=== PATIENT | male | born 1995 | race Caucasian/White ===

== ENCOUNTER 2018-07-08 16:42 | Observation (INO) | payer BC ==
--- NOTE | 2018-07-08 17:21 | EDPHY ---
H & P Stated Complaint: RLQ rebound tenderness began 1400, N/V. Denies trauma. Time Seen by Provider: 07/08/18 17:12 - Personal History Current Tetanus/Diphtheria Vaccine: Unsure - Medical/Surgical History Hx Asthma: No Hx Chronic Respiratory Disease: No Hx Diabetes: No Hx Cardiac Disease: No Hx Renal Disease: No Hx Cirrhosis: No Hx Alcoholism: No Hx HIV/AIDS: No Hx Splenectomy or Spleen Trauma: No Other PMH: Adenoid - Social History Smoking Status: Light smoker Constitutional: Initial Vital Signs Temperature (C) 36.6 C 07/08/18 17:06 Heart Rate 70 07/08/18 17:06 Respiratory Rate 16 07/08/18 17:06 Blood Pressure 129/80 H 07/08/18 17:06 O2 Sat (%) 96 07/08/18 17:06 O2 Delivery Mode Room Air Allergies/Adverse Reactions: amoxicillin Allergy (Verified 07/08/18 18:59) Anaphylaxis Cephalosporins Allergy (Verified 07/08/18 18:59) Anaphylaxis clarithromycin [From Biaxin] Allergy (Verified 07/08/18 18:59) Anaphylaxis clindamycin Allergy (Verified 07/08/18 18:59) Anaphylaxis Penicillins Allergy (Verified 07/08/18 18:59) Anaphylaxis Home Medications: Medication Instructions Recorded NK [No Known Home Meds] 07/08/18 Medical Decision Making - Diagnostics Imaging Results: Imaging Impressions Abdomen CT 07/08/18 17:23 Impression: 1. Mild to moderate thickening of the distal 2 cm of the appendix with associated appendicolith and mild amount of surrounding inflammation compatible with distal appendicitis Findings discussed with Dioni Robledo MD at 18:25 hour, 07/08/2018. Imaging: Discussed imaging studies w/ cafeteria assistant Radiologist, I viewed and interpreted images myself ED Course/Re-evaluation: CHIEF COMPLAINT: RLQ abdominal pain HISTORY OF PRESENT ILLNESS: The patient is a 23 y/o male complaining of RLQ abdominal pain that worsened around 13:30 today, about 4 hours ago. His stomach has been feeling "off" for a few days and he thought he had indigestion, but he didn't notice much pain until this afternoon. Palpation and movement aggravate pain. No recent illness or trauma. He denies history of abdominal surgeries and is typically healthy. Last PO intake around noon. REVIEW OF SYSTEMS: A comprehensive 10 system review of systems is otherwise negative aside from elements mentioned in the history of present illness and medical decision making. PHYSICAL EXAM: HR, BP, O2 Sat, RR. Temp noted General Appearance: Alert, well hydrated, appropriate, and non-toxic appearing. Head: Atraumatic without scalp tenderness or obvious injury Eyes: Pupils equal, round, reactive to light and accommodation, EOMI, no trauma , no injection. Ears: Clear bilaterally, no perforation, normal landmarks Nose: Atraumatic, no rhinorrhea, clear. Throat: There is no erythema or exudates, no lesions, normal tonsils, mucus membranes moist. Neck: Supple, non-tender, no lymphadenopathy. Respiratory: No retractions, no distress, no wheezes, and no accessory muscle use. Lungs are clear to auscultation bilaterally. Cardiovascular: Regular rate and rhythm, no murmurs, rubs, or gallops. Good capillary refill all extremities. Gastrointestinal: Abdomen is soft, RLQ tenderness, non-distended, no masses, no rebound, no guarding, no peritoneal signs. Musculoskeletal: Normal active ROM of all extremities, atraumatic. Neurological: Alert, appropriate, and interactive. Nonfocal. Skin: No rashes, good turgor, no nodules on palpation. PAST MEDICAL HISTORY: Denies PAST SURGICAL HISTORY: Denies SOCIAL HISTORY: Lives in [place]. Single. Not employed. DIAGNOSTICS/PROCEDURES/CRITICAL CARE TIME: Abdominal CT: acute appendicitis DIFFERENTIAL DIAGNOSIS: The differential diagnosis for the patient's abdominal pain included but was not limited to appendicitis, cholecystitis, hernias, testicular torsion, gastritis, and urinary tract infection. MEDICAL DECISION MAKING: This is a healthy 23 y/o male who presents with a few-day history of abdominal discomfort becoming acutely worse in the last 4 hours and now localized to his RLQ. He has RLQ tenderness on exam. Concern for appendicitis. Plan for IV, labs , abdominal CT. 1L IV NS and 4mg IV Zofran ordered. WBC elevated at 22.74. Abdomen CT shows acute appendicitis. Consulted with Dr. Stoll, surgery. He will admit patient and assess him in the ED. Reassessed patient and discussed findings. His pain is increasing and he feels anxious about the surgery. He has multiple antibiotic allergies including to amoxicillin, cephalosporins, penicillins, Biaxin, and clindamycin. He describes anaphylactic reactions including facial swelling to all of these compounds. He has taken doxycycline in the past without issue. ID paged. [id number]: Consulted with Dr. Greene, ID. He agrees with 1gm IV aztreonam and 500mg IV Flagyl treatment. - Data Points Laboratory Results: Laboratory Results 07/08/18 17:15 07/08/18 17:15 07/08/18 07/08/18 07/08/18 17:50 17:36 17:15 WBC RBC Hgb POC Hgb 16.0 gm/dL gm/dL (13.7-17.5) Hct POC Hct 47 % % (40-51) MCV MCH MCHC RDW Plt Count MPV Neut % (Auto) Lymph % (Auto) Door % (Auto) Eos % (Auto) Baso % (Auto) Nucleat RBC Rel Count Absolute Neuts (auto) Absolute Lymphs (auto) Absolute Monos (auto) Absolute Eos (auto) Absolute Basos (auto) Absolute Nucleated RBC Immature Gran % Immature Gran # RBC/WBC/PLT Morphology Platelet Estimate POC Sodium 140 mEq/L mEq/L (135-145) Sodium 136 mEq/L mEq/L (135-145) POC Potassium 3.6 mEq/L mEq/L (3.3-5.0) Potassium 3.7 mEq/L mEq/L (3.5-5.2) POC Chloride 100 mEq/L mEq/L (97-110) Chloride 104 mEq/L mEq/L (97-110) Carbon Dioxide 24 mEq/l mEq/l (22-31) POC Total CO2 24 mEq/L mEq/L (22-31) Anion Gap 8 mEq/L mEq/L (6-14) POC BUN 23 mg/dL mg/dL (7-23) BUN 21 mg/dL mg/dL (7-23) Creatinine 0.8 mg/dL mg/dL (0.7-1.3) POC Creatinine 0.8 mg/dL mg/dL (0.7-1.3) Estimated GFR > 60 Glucose 101 mg/dL H mg/dL (70-100) POC Glucose 101 mg/dL H mg/dL (70-100) Calcium 9.7 mg/dL mg/dL (8.5-10.4) Total Bilirubin 0.5 mg/dL mg/dL (0.1-1.4) Conjugated Bilirubin 0.3 mg/dL mg/dL (0.0-0.5) Unconjugated Bilirubin 0.2 mg/dL mg/dL (0.0-1.1) AST 27 IU/L IU/L (17-59) ALT 39 IU/L IU/L (21-72) Alkaline Phosphatase 66 IU/L IU/L (38-126) POC Troponin I 0.00 ng/mL ng/mL (0.00-0.08) Total Protein 7.5 g/dL g/dL (6.3-8.2) Albumin 4.8 g/dL g/dL (3.5-5.0) Lipase 43 IU/L IU/L (23-300) 07/08/18 17:15 WBC 22.74 10^3/uL H 10^3/uL (3.80-9.50) RBC 5.03 10^6/uL 10^6/uL (4.40-6.38) Hgb 16.1 g/dL g/dL (13.7-17.5) POC Hgb Hct 46.1 % % (40.0-51.0) POC Hct MCV 91.7 fL fL (81.5-99.8) MCH 32.0 pg pg (27.9-34.1) MCHC 34.9 g/dL g/dL (32.4-36.7) RDW 12.0 % % (11.5-15.2) Plt Count 251 10^3/uL 10^3/uL (150-400) MPV 9.1 fL fL (8.7-11.7) Neut % (Auto) 81.0 % H % (39.3-74.2) Lymph % (Auto) 8.4 % L % (15.0-45.0) Door % (Auto) 9.3 % % (4.5-13.0) Eos % (Auto) 0.6 % % (0.6-7.6) Baso % (Auto) 0.2 % L % (0.3-1.7) Nucleat RBC Rel Count 0.0 % % (0.0-0.2) Absolute Neuts (auto) 18.42 10^3/uL H 10^3/uL (1.70-6.50) Absolute Lymphs (auto) 1.91 10^3/uL 10^3/uL (1.00-3.00) Absolute Monos (auto) 2.11 10^3/uL H 10^3/uL (0.30-0.80) Absolute Eos (auto) 0.14 10^3/uL 10^3/uL (0.03-0.40) Absolute Basos (auto) 0.05 10^3/uL 10^3/uL (0.02-0.10) Absolute Nucleated RBC 0.00 10^3/uL 10^3/uL (0-0.01) Immature Gran % 0.5 % % (0.0-1.1) Immature Gran # 0.11 10^3/uL H 10^3/uL (0.00-0.10) RBC/WBC/PLT Morphology TNP Platelet Estimate TNP POC Sodium Sodium POC Potassium Potassium POC Chloride Chloride Carbon Dioxide POC Total CO2 Anion Gap POC BUN BUN Creatinine POC Creatinine Estimated GFR Glucose POC Glucose Calcium Total Bilirubin Conjugated Bilirubin Unconjugated Bilirubin AST ALT Alkaline Phosphatase POC Troponin I Total Protein Albumin Lipase Medications Given: Discontinued Medications Hydromorphone HCl (Dilaudid) 1 mg IVP EDNOW ONE Stop: 07/08/18 18:35 Last Admin: 07/08/18 18:47 Dose: 1 mg Sodium Chloride (Ns) 1,000 mls @ 0 mls/hr IV EDNOW ONE; Wide Open PRN Reason: Protocol Stop: 07/08/18 17:24 Last Admin: 07/08/18 18:08 Dose: 1,000 mls Ondansetron HCl (Zofran) 4 mg IVP EDNOW ONE Stop: 07/08/18 17:24 Last Admin: 07/08/18 18:08 Dose: 4 mg Point of Care Test Results: Chemistry 07/08/18 07/08/18 17:50 17:36 POC Sodium 140 mEq/L mEq/L (135-145) POC Potassium 3.6 mEq/L mEq/L (3.3-5.0) POC Chloride 100 mEq/L mEq/L (97-110) POC Total CO2 24 mEq/L mEq/L (22-31) POC BUN 23 mg/dL mg/dL (7-23) POC Creatinine 0.8 mg/dL mg/dL (0.7-1.3) POC Glucose 101 mg/dL H mg/dL (70-100) POC Troponin I 0.00 ng/mL ng/mL (0.00-0.08) ISTAT H&H 07/08/18 17:50 POC Hgb 16.0 gm/dL gm/dL (13.7-17.5) POC Hct 47 % % (40-51) Departure - Departure Disposition: [facility] Inpatient Acute Clinical Impression: Acute appendicitis Qualifiers: Acute appendicitis type: with localized peritonitis Appendicitis gangrene presence: unspecified whether gangrene present Appendicitis perforation presence : unspecified whether perforation present Appendicitis abscess presence: unspecified whether abscess present Qualified Code(s): K35.30 - Acute appendicitis with localized peritonitis, without perforation or gangrene Condition: Fair Report Scribed for: Dioni Robledo Report Scribed by: Aicha Dodge Date of Report: 07/08/18 Time of Report: 17:21
[2018-07-08] MEDS ORDERED: ONDANSETRON 4 MG/2 ML VIAL IVP ONE (17:23)
[2018-07-08] MEDS ORDERED: NS 1,000 ML IV ONE (17:23)
[2018-07-08 17:39] LABS: PLATELET COUNT 251 10^3/uL (150-400)
[2018-07-08] MEDS ORDERED: IOHEXOL 300 mgI/ML (OMNIPAQUE) 150 ML BTL IV ONE (17:57)
[2018-07-08] MEDS ORDERED: HYDROmorphONE/DILAUDID 2 MG/ML INJ IVP ONE (18:34)
[2018-07-08] MEDS ORDERED: AZTREONAM 1 GM in NS 50 ML IV ONE (18:53)
[2018-07-08] MEDS ORDERED: LR 1,000 ML IV ONE (18:57)
--- NOTE | 2018-07-08 19:07 | PDGENHP ---
History and Physical - Chief Complaint abdominal pain - History of Present Illness PAtient is an otherwise healthy 23yoM who presents with a 24hr history of abdominal pain. Started yesterday, described as "acidic stomach" this persisted to today when he started having abdominal pain. This pain was progressive. Denies fevers or chills. Pain is sharp and in RLQ. No nausea or vomiting History Information - Allergies/Home Medication List Allergies/Adverse Reactions: amoxicillin Allergy (Verified 07/08/18 18:59) Anaphylaxis Cephalosporins Allergy (Verified 07/08/18 18:59) Anaphylaxis clarithromycin [From Biaxin] Allergy (Verified 07/08/18 18:59) Anaphylaxis clindamycin Allergy (Verified 07/08/18 18:59) Anaphylaxis Penicillins Allergy (Verified 07/08/18 18:59) Anaphylaxis Home Medications: NK [No Known Home Meds] 07/08/18 [Last Taken Unknown] I have personally reviewed and updated: family history, medical history, social history, surgical history - Past Medical History no pertinent PMH - Surgical History Reports: no pertinent surgical hx - Family History Positive for: non-pertinent - Social History Smoking Status: Light smoker Review of Systems Review of Systems: ROS: 10pt was reviewed & negative except for what was stated in HPI & below Physical Exam Physical Exam: Temp Pulse Resp BP Pulse Ox 37.1 C 67 16 134/77 H 96 07/08/18 18:11 07/08/18 18:11 07/08/18 18:11 07/08/18 18:11 07/08/18 18:11 Constitutional: no apparent distress, appears nourished, not in pain Eyes: PERRL, anicteric sclera, EOMI Ears, Nose, Mouth, Throat: moist mucous membranes, hearing normal, ears appear normal, no oral mucosal ulcers Cardiovascular: regular rate and rhythym, no murmur, rub, or gallop, No edema Respiratory: no respiratory distress, no rales or rhonchi, clear to auscultation Gastrointestinal: normoactive bowel sounds, other (TTP in RLQ with rebound ) Genitourinary: no bladder fullness, no bladder tenderness Skin: warm, normal color, no rashes or abrasions, no fluctuance, no induration, No mottled Musculoskeletal: full muscle strength, no muscle tenderness, normal joint ROM, no joint effusions Psychiatric: interacting appropriately, not anxious, not encephalopathic, thought process linear Lymph, Heme, Immunologic: no cervical LAD, no supraclavicular LAD Lab Data & Imaging Review 07/08/18 17:15 07/08/18 17:15 WBC 22.74 10^3/uL (3.80-9.50) H 07/08/18 17:15 RBC 5.03 10^6/uL (4.40-6.38) 07/08/18 17:15 Hgb 16.1 g/dL (13.7-17.5) 07/08/18 17:15 POC Hgb 16.0 gm/dL (13.7-17.5) 07/08/18 17:50 Hct 46.1 % (40.0-51.0) 07/08/18 17:15 POC Hct 47 % (40-51) 07/08/18 17:50 MCV 91.7 fL (81.5-99.8) 07/08/18 17:15 MCH 32.0 pg (27.9-34.1) 07/08/18 17:15 MCHC 34.9 g/dL (32.4-36.7) 07/08/18 17:15 RDW 12.0 % (11.5-15.2) 07/08/18 17:15 Plt Count 251 10^3/uL (150-400) 07/08/18 17:15 MPV 9.1 fL (8.7-11.7) 07/08/18 17:15 Neut % (Auto) 81.0 % (39.3-74.2) H 07/08/18 17:15 Lymph % (Auto) 8.4 % (15.0-45.0) L 07/08/18 17:15 [place] % (Auto) 9.3 % (4.5-13.0) 07/08/18 17:15 Eos % (Auto) 0.6 % (0.6-7.6) 07/08/18 17:15 Baso % (Auto) 0.2 % (0.3-1.7) L 07/08/18 17:15 Nucleat RBC Rel Count 0.0 % (0.0-0.2) 07/08/18 17:15 Absolute Neuts (auto) 18.42 10^3/uL (1.70-6.50) H 07/08/18 17:15 Absolute Lymphs (auto) 1.91 10^3/uL (1.00-3.00) 07/08/18 17:15 Absolute Monos (auto) 2.11 10^3/uL (0.30-0.80) H 07/08/18 17:15 Absolute Eos (auto) 0.14 10^3/uL (0.03-0.40) 07/08/18 17:15 Absolute Basos (auto) 0.05 10^3/uL (0.02-0.10) 07/08/18 17:15 Absolute Nucleated RBC 0.00 10^3/uL (0-0.01) 07/08/18 17:15 Immature Gran % 0.5 % (0.0-1.1) 07/08/18 17:15 Immature Gran # 0.11 10^3/uL (0.00-0.10) H 07/08/18 17:15 RBC/WBC/PLT Morphology TNP 07/08/18 17:15 Platelet Estimate TNP 07/08/18 17:15 POC Sodium 140 mEq/L (135-145) 07/08/18 17:50 Sodium 136 mEq/L (135-145) 07/08/18 17:15 POC Potassium 3.6 mEq/L (3.3-5.0) 07/08/18 17:50 Potassium 3.7 mEq/L (3.5-5.2) 07/08/18 17:15 POC Chloride 100 mEq/L (97-110) 07/08/18 17:50 Chloride 104 mEq/L (97-110) 07/08/18 17:15 Carbon Dioxide 24 mEq/l (22-31) 07/08/18 17:15 POC Total CO2 24 mEq/L (22-31) 07/08/18 17:50 Anion Gap 8 mEq/L (6-14) 07/08/18 17:15 POC BUN 23 mg/dL (7-23) 07/08/18 17:50 BUN 21 mg/dL (7-23) 07/08/18 17:15 Creatinine 0.8 mg/dL (0.7-1.3) 07/08/18 17:15 POC Creatinine 0.8 mg/dL (0.7-1.3) 07/08/18 17:50 Estimated GFR > 60 07/08/18 17:15 Glucose 101 mg/dL (70-100) H 07/08/18 17:15 POC Glucose 101 mg/dL (70-100) H 07/08/18 17:50 Calcium 9.7 mg/dL (8.5-10.4) 07/08/18 17:15 Total Bilirubin 0.5 mg/dL (0.1-1.4) 07/08/18 17:15 Conjugated Bilirubin 0.3 mg/dL (0.0-0.5) 07/08/18 17:15 Unconjugated Bilirubin 0.2 mg/dL (0.0-1.1) 07/08/18 17:15 AST 27 IU/L (17-59) 07/08/18 17:15 ALT 39 IU/L (21-72) 07/08/18 17:15 Alkaline Phosphatase 66 IU/L (38-126) 07/08/18 17:15 POC Troponin I 0.00 ng/mL (0.00-0.08) 07/08/18 17:36 Total Protein 7.5 g/dL (6.3-8.2) 07/08/18 17:15 Albumin 4.8 g/dL (3.5-5.0) 07/08/18 17:15 Lipase 43 IU/L (23-300) 07/08/18 17:15 Visualized and Interpreted imaging results: Yes Interpretation: CT: acute appendicitis with fecalith. Non perforated Assessment & Plan Assessment: Acute appendicitis (Acute) Plan: 23yo M c acute appendicitis - ID and ED figuring out appropriate ABX given Hx of anaphylaxis - to OR for lap appy, RBA discussed
[2018-07-08] MEDS ORDERED: BUPIVACAINE 0.25% 30 ML SDV ONE (19:08)
[2018-07-08] MEDS ORDERED: EPINEPHrine 1 MG/ML INJ ONE (19:09)
--- NOTE | 2018-07-08 19:32 | PDANEPAE ---
ANE History of Present Illness Acute appendectomy ANE Past Medical History - Cardiovascular History Hx Hypertension: No Hx Palpitations: No - Pulmonary History Hx Asthma/Reactive Airway Disease: No Hx Oxygen in Use at Home: No Hx Sleep Apnea: No - Endocrine History Hx Diabetes: No ANE Review of Systems Review of Systems: ANE Patient History - Allergies Allergies/Adverse Reactions: amoxicillin Allergy (Verified 07/08/18 18:59) Anaphylaxis Cephalosporins Allergy (Verified 07/08/18 18:59) Anaphylaxis clarithromycin [From Biaxin] Allergy (Verified 07/08/18 18:59) Anaphylaxis clindamycin Allergy (Verified 07/08/18 18:59) Anaphylaxis Penicillins Allergy (Verified 07/08/18 18:59) Anaphylaxis - Home Medications Home medications: home medication list seen and reviewed Home Medications: NK [No Known Home Meds] 07/08/18 [Last Taken Unknown] - NPO status NPO Status: no food or drink >8 hours NPO Since - Liquids (Date): 07/08/18 NPO Since - Liquids (Time): 17:00 NPO Since - Solids (Date): 07/08/18 NPO Since - Solids (Time): 12:00 - Anes Hx Anes Hx: no prior problems - Smoking Hx Smoking Status: Light smoker ANE Labs/Vital Signs - Labs Result Diagrams: 07/08/18 17:15 07/08/18 17:15 - Vital Signs Blood Pressure: 135/85 Heart Rate: 86 Respiratory Rate: 18 O2 Sat (%): 95 Height: 180.34 cm Weight: 70.307 kg ANE Physical Exam - Airway Neck exam: FROM Mallampati Score: Class 1 Mouth exam: normal dental/mouth exam - Pulmonary Pulmonary: no respiratory distress - Cardiovascular Cardiovascular: regular rate and rhythym - ASA Status ASA Status: I, E
[2018-07-08] MEDS ORDERED: MIDAZOLAM 2 MG/2 ML VIAL IVP ONE (19:35)
[2018-07-08] MEDS ORDERED: ROCURONIUM 50 MG/5 ML VIAL ONE (19:40)
[2018-07-08] MEDS ORDERED: fentaNYL 100 MCG/2 ML INJ ONE ×2 (19:41→20:58)
[2018-07-08] MEDS ORDERED: PROPOFOL 200 MG/20 ML VIAL ONE (19:42)
[2018-07-08] MEDS ORDERED: DEXAMETHASONE 4 MG/ML VIAL ONE (20:05)
[2018-07-08] MEDS ORDERED: ONDANSETRON 4 MG/2 ML VIAL ONE (20:06)
[2018-07-08] MEDS ORDERED: NALOXONE HCL 0.4 MG/ML INJ IVP PRN (20:19)
[2018-07-08] MEDS ORDERED: PROMETHAZINE HCL 25 MG/ML INJ IVP PRN (20:19)
[2018-07-08] MEDS ORDERED: HYDROmorphONE/DILAUDID 2 MG/ML INJ IVP PRN (20:19)
[2018-07-08] MEDS ORDERED: ONDANSETRON 4 MG/2 ML VIAL IVP PRN ×2 (20:19→20:28)
[2018-07-08] MEDS ORDERED: oxyCODONE IR 5 MG TAB PO PRN (20:28)
[2018-07-08] MEDS ORDERED: HYDROmorphONE/DILAUDID 1 MG/ML INJ IVP PRN (20:28)
--- NOTE | 2018-07-08 20:28 | POSTOPPROG ---
Post Op Note Date of Operation: 07/08/18 Surgeon: Sergio Stoll Anesthesiologist: Freda Anesthesia: GET(General Endotracheal) Pre-op Diagnosis: appendicitis Post-op Diagnosis: same Procedure: laparoscopic appendectomy Findings: acute, non perforated Inf/Abcess present in the surg proc area at time of surgery?: No EBL: Minimal Total fluids administered: 750cc NS washout Specimen(s): appendix
--- NOTE | 2018-07-08 20:41 | POSTANESTH ---
Post Anesthetic Evaluation Cardiovascular Status: Similar to Pre-Op Cond Respiratory Status: Similar to Pre-op Cond. Level of Consciousness/Mental Status: Alert and Oriented Pain Control: Adequate, Prn Tx Ordered Nausea/Vomiting Control: Adequate, Prn Tx Ordered Complications Possibly Related to Anesthesia: None Noted
[2018-07-08] MEDS ORDERED: KETOROLAC 30 MG/1 ML SDV ONE (20:58)
[2018-07-08] MEDS: KETOROLAC 30 MG/1 ML SDV IVP PRN (21:05)
[2018-07-08] MEDS: fentaNYL 100 MCG/2 ML INJ IVP PRN ×2 (21:06→21:45)
[2018-07-08] MEDS ORDERED: IBUPROFEN 600 MG TAB PO SCH (22:00)
[2018-07-08] MEDS: D5W 1/2 NS W/ 20 KCl/L 1,000 ML IV SCH (22:33)
[2018-07-08] MEDS: ACETAMINOPHEN 325 MG TAB PO PRN (22:33)
[2018-07-09] MEDS: ACETAMINOPHEN 325 MG TAB PO PRN ×2 (02:11→06:05)
[2018-07-09] MEDS: KETOROLAC 30 MG/1 ML SDV IVP PRN ×2 (02:49→09:44)
[2018-07-09] MEDS: D5W 1/2 NS W/ 20 KCl/L 1,000 ML IV SCH (06:06)
[2018-07-09] MEDS ORDERED: oxyCODONE IR 5 MG TAB PO PRN (06:33)
--- NOTE | 2018-07-09 09:14 | ASDISCHSUM ---
Discharge Information Plan Status:Home with No Needs Medically Cleared to Leave: Discharge Date: CM D/C Disposition:Home, Routine, Self-Care ADT D/C Disposition:Home, Routine, Self-Care Projected Discharge Date: Transportation at D/C: Discharge Delay Reason: Follow-Up Date: Discharge Slot: Final Diagnosis: Placement Information Patient Contact Information Contact Name:PIEDAD Relationship:Mother Address: Work Phone: City: [facility] Phone: [facility]/[employer] Code: Email: Financial Information Financial Class:BCOP Primary Plan Desc: OUT OF STATE PPO Primary Plan Number:[id number] Secondary Plan Desc: Secondary Plan Number: Assessment Information LACE LACE Length of stay for Answers: Less than 1 day current admission Acuity / Level of Answers: No Care: Did the patient have an inpatient admission? # of Emergency department Answers: 1-2 visits in the last 6 months Score: 1 Date Signed: 07/09/2018 09:13 AM Electronically Signed By:Kimberley Cristina Intervention Information
[2018-07-09 09:25] VITALS: BP 107/67
--- NOTE | 2018-07-09 09:35 | GOP ---
[f rep st] OPERATIVE REPORT DATE OF OPERATION: 07/08/2018 SURGEON: Sergio Stoll MD BELT KNIFE FEEDER: None. ANESTHESIA: General endotracheal provided by Aroldo Barba MD. PREOPERATIVE DIAGNOSIS: Acute appendicitis. POSTOPERATIVE DIAGNOSIS: Acute appendicitis. PROCEDURE PERFORMED: Laparoscopic appendectomy. FINDINGS: Acute indurated nonperforated appendicitis. SPECIMENS: Appendix. ESTIMATED BLOOD LOSS: 5 cc. DESCRIPTION OF PROCEDURE: The patient was greeted in the preoperative suite. Once again, risks, diana efits, and alternatives were discussed. Consent was signed. He was then brought back to the operati ve suite, placed on the OR table in supine position. After all anesthesia machines including SCDs we re on and functioning, [facility] time-out was performed. After successful induction of general anesthesia, the patient's abdomen was prepped and draped in typical sterile fashion. I co mmenced the procedure by making an infraumbilical cutdown through which the Veress needle was passed. I achieved pneumoperitoneum to 15 mmHg, which was well tolerated by the patient. Through this, I t hen inserted a 12 mm Visiport successfully into the abdomen. I then inserted 2 additional 5 mm troca rs 1 in the suprapubic, 1 in the left lower quadrant, both under direct visualization. I identified the appendix by tracing the taeniae inferiorly. The base of the appendix appeared normal. The tip a ppeared indurated and swollen. I created a defect at the appendiceal base and successfully stapled i t off at the cecal base with a single fire HEATHER stapler; in the same fashion, stapled off the mesoappe ndix. The mesoappendix was not hemostatic and required multiple 5 mm hemoclips. The right lower janak drant was then irrigated. Hemostasis was good. Specimen was removed. I irrigated the pelvis and ri ght upper quadrant as well. I evacuated my pneumoperitoneum after injecting local anesthesia into th e port sites. My infraumbilical site was closed with an 0 Vicryl stitch noting excellent fascial minoo pproximation. The skin was then closed with Monocryl. Dermabond was placed. The patient was extuba heydi and taken to the PACU in satisfactory condition. DRAINS: None. COUNTS: All counts were reported as correct x2. /[id number]/MODL
--- NOTE | 2018-07-12 10:21 | PDDCSUM ---
Discharge Summary Discharge Summary: DISCHARGE SUMMARY Date of Admission July 08 Date of Discharge July 09 DISCHARGE DIAGNOSES -acute appendicitis HOSPITAL COURSE The patient was admitted from the ED and taken to the operating room where they underwent an uneventful laparoscopic appendectomy. They were subsequently taken to the PACU and then the general medical floor. The hospital course was uneventful, their diet was advanced to a regular diet which was well tolerated and their pain was well controlled. They were discharged home in stable condition on the morning of the 2nd DISCHARGE MEDICATIONS Oxycodone as needed for pain DISPOSITION Home FOLLOW UP Follow up with me in the office in 10-14 days for a general post-operative visit
== END 2018-07-09 10:23 | disposition home or self-care (01) ==
LOC: F1N 22:24
PROVIDERS: ADMIT Surgery; ATTEND Surgery
PROC: 0DTJ4ZZ Resection of Appendix, Percutaneous Endoscopic Approach (ICD-10-PCS; principal; 2018-07-08 19:30)
DX: K35.80 Unspecified acute appendicitis (principal); E86.0 Dehydration
CPT/HCPCS: 44970; 74177; 96361; 96374; 96375; 99285; G0378; 82435-PO; 82565-PO; 82947-PO; 84132-PO; 84295-PO; 84484-ER; 84520-PO; 85014-ER; J0171; J1100; J1170; J1885; J2250; J2405; J2704; J3010; Q9967

== ENCOUNTER 2018-09-10 09:33 | Emergency (ER) | payer OTHER, BC ==
--- NOTE | 2018-09-10 09:47 | EDPHY ---
H & P Stated Complaint: Dog bite left arm/right hand Time Seen by Provider: 09/10/18 09:46 - Personal History Current Tetanus/Diphtheria Vaccine: Yes - Medical/Surgical History Hx Asthma: No Hx Chronic Respiratory Disease: No Hx Diabetes: No Hx Cardiac Disease: No Hx Renal Disease: No Hx Cirrhosis: No Hx Alcoholism: No Hx HIV/AIDS: No Hx Splenectomy or Spleen Trauma: No Other PMH: Adenoids - Social History Smoking Status: Light smoker Constitutional: Initial Vital Signs Temperature (C) 36.5 C 09/10/18 09:37 Heart Rate 76 09/10/18 09:37 Respiratory Rate 18 09/10/18 09:37 Blood Pressure 115/76 09/10/18 09:37 O2 Sat (%) 95 09/10/18 09:37 O2 Delivery Mode Room Air Allergies/Adverse Reactions: amoxicillin Allergy (Verified 09/10/18 09:41) Anaphylaxis Cephalosporins Allergy (Verified 09/10/18 09:41) Anaphylaxis clarithromycin [From Biaxin] Allergy (Verified 09/10/18 09:41) Anaphylaxis clindamycin Allergy (Verified 09/10/18 09:41) Anaphylaxis Penicillins Allergy (Verified 09/10/18 09:41) Anaphylaxis Home Medications: Medication Instructions Recorded Acetaminophen [Tylenol 325mg (*)] 650 mg PO Q4HRS PRN tab 07/09/18 oxyCODONE IR [Oxycodone Ir (*)] 5 mg PO Q4HRS PRN #12 tab 07/09/18 EPINEPHrine KIT [Epipen Kit] 0.3 mg IM ONCE #3 inj 09/10/18 Moxifloxacin [Avelox 400 mg (*)] 400 mg PO DAILY #10 tab 09/10/18 oxyCODONE IR [Oxycodone Ir (*)] 5 - 10 mg PO Q6 PRN #20 tab 09/10/18 Medical Decision Making - Diagnostics Imaging Results: Imaging Impressions Upper Extremity MRI 09/10/18 09:52 Impression: Intramuscular edema involving the anterior aspect of the right biceps muscle at the site of injury, with mild adjacent subcutaneous edema. No significant intramuscular hematoma or muscular tear identified. Results called to Dr. Dioni Robledo at 11:30 a.m. Imaging: Discussed imaging studies w/ call center assistant Radiologist, I viewed and interpreted images myself ED Course/Re-evaluation: CHIEF COMPLAINT: Dog bite to right biceps and left middle finger HISTORY OF PRESENT ILLNESS: The patient is a 23 y/o male complaining of a dog bite to his right biceps and left middle finger. The patient was bit at his work, [employer]. He is having significant pain in his right biceps and it now feels cold. 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 When I saw him two months ago for appendicitis , I gave him 1gm aztreonam and 500mg IV Flagyl. No fever, headache, body aches, lightheadedness, chest pain, heart palpitations, shortness of breath, cough, abdominal pain, urinary or bowel complaints, numbness, paresthesias. REVIEW OF SYSTEMS: A comprehensive 10 system review of systems is otherwise negative aside from elements mentioned in the history of present illness and medical decision making. PHYSICAL EXAM: HR, BP, O2 Sat, RR. Temp noted General Appearance: Alert, well hydrated, appropriate, and non-toxic appearing. Head: Atraumatic without scalp tenderness or obvious injury Eyes: Pupils equal, round, reactive to light and accommodation, EOMI, no trauma , no injection. Ears: Clear bilaterally, no perforation, normal landmarks Nose: Atraumatic, no rhinorrhea, clear. Throat: There is no erythema or exudates, no lesions, normal tonsils, mucus membranes moist. Neck: Supple, 2+ carotid upstroke, nontender, no lymphadenopathy. Respiratory: No retractions, no distress, no wheezes, and no accessory muscle use. Lungs are clear to auscultation bilaterally. Cardiovascular: Regular rate and rhythm, no murmurs, rubs, or gallops. Bilateral carotid, radial, dorsalis pedis, and posterior tibial pulses intact. Good capillary refill all extremities. Gastrointestinal: Abdomen is soft, nontender, non-distended, no masses, no rebound, no guarding, no peritoneal signs. Musculoskeletal: Crush injury of right biceps. Normal active ROM of all extremities. Neurological: Alert, appropriate, and interactive. The patient has normal DTRs and non-focal cranial nerves, motor, sensory, and cerebellar exam. Skin: Dog bite to right biceps and left middle finger. No rashes, good turgor, no nodules on palpation. Past medical history: Adenoids Past surgical history: Appendectomy Family history: Denies Social history: Employed at [employer], lives in [place], single DIAGNOSTICS/PROCEDURES/CRITICAL CARE TIME: Right upper extremity MR: Muscle swelling but no muscle tear or hematoma to drain. DIFFERENTIAL DIAGNOSIS: The differential diagnosis for the patient's arm injury included but was not limited to dog bite, hematoma, fracture, ligamentous injury, contusion, muscular strain, and meniscus injury. MEDICAL DECISION MAKING: The patient is a 23 y/o male presenting with a dog bite to his right biceps and left middle finger. He is having significant pain in his right biceps and it now feels cold. 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 When I saw him two months ago for appendicitis, I gave him 1gm aztreonam and 500mg IV Flagyl. On exam there is a large bite and crush injury of his right biceps and a small bite to his left middle finger. I am concerned about a muscle injury and compartment syndrome of his right biceps. Right upper extremity MRI ordered. 1007: I consulted with Dr. Shaikh, infectious disease, regarding this patient and his allergies to antibiotics. 1013: I consulted with Dr. Shaikh, regarding the appropriate antibiotic. I will prescribe him 400mg PO Avelox for 10 days as well as an EpiPen. 2 tabs Percocet , 800mg PO Motrin, and 400mg PO Avelox administered prior to MRI. Patient will also receive a tetanus booster as he is unsure if he is up-to-date on this. 1139: I spoke with Dr. Carias, radiologist, who reports that the patient has muscle swelling but no hematoma to drain. Patient will be placed in a sling if he desires. 1147: Reassessed patient and discussed imaging findings. He is comfortable with taking antibiotics. I have advised him to follow up with an orthopedic surgeon for worsening symptoms. I have also prescribed him EpiPens due to his history of anaphylaxis. Return precautions provided; patient is comfortable with this plan. - Data Points Medications Given: Discontinued Medications Diphtheria/Tetanus/Acell Pertussis (Boostrix) 0.5 ml IM .ONCE ONE Stop: 09/10/18 10:25 Last Admin: 09/10/18 10:27 Dose: 0.5 ml Ibuprofen (Motrin) 800 mg PO EDNOW ONE Stop: 09/10/18 10:17 Last Admin: 09/10/18 10:27 Dose: 800 mg Moxifloxacin HCl (Avelox) 400 mg PO EDNOW ONE PRN Reason: Protocol Stop: 09/11/18 11:29 Last Admin: 09/10/18 12:22 Dose: 400 mg Oxycodone/Acetaminophen (Percocet 5/325) 2 tab PO EDNOW ONE Stop: 09/10/18 10:17 Last Admin: 09/10/18 10:27 Dose: 2 tab Departure - Departure Disposition: Home, Routine, Self-Care Clinical Impression: Injury of long head of biceps Dog bite Qualifiers: Encounter type: initial encounter Qualified Code(s): W54.0XXA - Bitten by dog, initial encounter Condition: Good Instructions: Animal Bite (ED), Musculoskeletal Pain (ED), Crush Injury (ED) Additional Instructions: 1. Take Avelox as prescribed. 2. Take OxyIR and Motrin as prescribed for pain and inflammation. 3. Use the EpiPen in case of anaphylaxis emergency. 4. Wear sling for comfort. 5. Follow up with an orthopedic surgeon within one week. 6. Return to the emergency department for worsening pain, swelling, numbness, weakness or other concerns. Referrals: Suzanne Shaikh MD [Medical Doctor] - As per Instructions Soraya Angeles MD [Medical Doctor] - As per Instructions Prescriptions: EPINEPHrine KIT [Epipen Kit] 0.3 mg IM ONCE #3 inj Moxifloxacin [Avelox 400 mg (*)] 400 mg PO DAILY #10 tab oxyCODONE IR [Oxycodone Ir (*)] 5 - 10 mg PO Q6 PRN #20 tab PRN Reason: Pain, Severe Report Scribed for: Dioni Robledo Report Scribed by: Ashtyn Goetz Date of Report: 09/10/18 Time of Report: 09:48
[2018-09-10] MEDS ORDERED: OXYCODONE/APAP 5/325 TAB PO ONE (10:16)
[2018-09-10] MEDS ORDERED: IBUPROFEN 800 MG TAB PO ONE (10:16)
[2018-09-10] MEDS ORDERED: TDAP ADULT 0.5 ML INJ (BOOSTRIX) IM ONE (10:24)
[2018-09-10 12:03] VITALS: BP 118/76
[2018-09-11] MEDS ORDERED: MOXIFLOXACIN 400 MG TAB PO ONE (11:28)
== END 2018-09-10 12:22 | disposition home or self-care (01) ==
DX: S46.101A Unspecified injury of muscle, fascia and tendon of long head of biceps, right arm, initial encounter (principal); S41.151A Open bite of right upper arm, initial encounter; S61.253A Open bite of left middle finger without damage to nail, initial encounter; Z23 Encounter for immunization; W54.0XXA Bitten by dog, initial encounter; Y99.0 Civilian activity done for income or pay; Y92.9 Unspecified place or not applicable; Y93.9 Activity, unspecified